=== PATIENT | male | born 1945 | race Caucasian/White ===

== ENCOUNTER 2017-05-23 13:01 | Emergency (ER) | payer OTHER, MEDICARE ==
[~2017-05-23] VITALS: Ht 167.6 cm; Wt 66.0 kg
[2017-05-23 14:04] LABS: EOSINOPHIL (%) 1.6 % (0-5); EOSINOPHIL COUNT 0.1 K/uL (0-0.3); IMMATURE GRANULOCYTE (%) 0.3 % (0.0-0.7); INSTRUMENT ABS NEUTROPHIL CT 2.1 K/uL; LYMPHOCYTE COUNT 0.7 K/uL (1.0-2.8); MCH 29.7 PG (29.0-34.0); MCHC 33.4 G/DL (30.0-36.0); MCV 88.9 FL (86-99); MEAN PLAT.VOLUME 10.6 uM^3 (9.0-12.4); MONOCYTE (%) 10.7 % (3-12); MONOCYTE COUNT 0.3 K/uL (0-0.8); NEUTROPHIL (%) 66.7 % (45-76); NEUTROPHIL COUNT 2.1 K/uL (1.8-6.4); PLATELET COUNT 166 K/uL (156-360); RBC DIS.WIDTH-CV 12.9 % (11.8-14.6); RBC DIS.WIDTH-SD 41.9 % (39-53); RED BLOOD COUNT 4.61 M/uL (4.00-5.50); WHITE BLOOD COUNT 3.2 K/uL (4.1-10.2)
[2017-05-23 14:12] LABS: CHLORIDE 105 mEq/L (99-109); POTASSIUM 3.8 mEq/L (3.7-5.4); SODIUM 143 mEq/L (136-147)
[2017-05-23 14:14] LABS: GLUCOSE 89 mg/dL (70-99)
[2017-05-23 14:15] LABS: ANION GAP 8 MEQ/L (2-14)
[2017-05-23 14:16] LABS: TOTAL BILIRUBIN 0.5 mg/dL (0.0-1.0)
[2017-05-23 14:18] LABS: ALKALINE PHOSPHATASE 59 IU/L (3-129); GFR ESTIMATE (CALCULATED) > 59 mL/min/
[2017-05-23 14:19] LABS: UREA NITROGEN (BUN) 15 mg/dL (9-23)
[2017-05-23 14:22] LABS: Estimated Average Glucose 100 mg/dL (70-123); HEMOGLOBIN A1c (GLYCOHEMOGLOB) 5.1 % HGB (Below 5.7)
[2017-05-23 14:24] LABS: TROP-I INTERPRETATION NEGATIVE; TROPONIN-I < 0.01 ng/mL (0.0-0.30)
[2017-05-23 14:36] LABS: ADD MIUA? YES; BILIRUBIN NEGATIVE; BLOOD NEGATIVE; COLOR YELLOW ((YELLOW)); GLUCOSE (STRIP) NEGATIVE; KETONES 5; LEUKOCYTES NEGATIVE; NITRITE NEGATIVE; PROTEIN (STRIP) 30; SPECIFIC GRAVITY 1.019 (1.000-1.030)
[2017-05-23 14:42] LABS: BACTERIA 1+ /HPF; EPITHELIAL CELLS NONE SEEN /HPF; MUCUS 1+ /LPF; RED BLOOD CELLS 0-5 /HPF (0-5); UCUL ADDED? NO; WHITE BLOOD CELLS NONE SEEN /HPF (0-5)
[2017-05-23 14:57] LABS: HDL CHOLESTEROL 51 MG/DL (Desirable>=40); LDL CHOLESTEROL 85 mg/dL (Desirable<100); NON-HDL CHOLESTEROL 95 mg/dL (Desirable<160); TOTAL CHOLESTEROL 146 mg/dL (Desirable<200); TRIGLYCERIDES 49 MG/DL (Normal: <150)
[2017-05-23 17:30] VITALS: BP 134/66
== END 2017-05-23 18:15 | disposition left against medical advice (07) ==
LOC: EME 13:01
PROVIDERS: Emergency Medicine
DX: R53.1 Weakness (principal); G20 Parkinson's disease; F02.80 Dementia in other diseases classified elsewhere, unspecified severity, without behavioral disturbance, psychotic disturbance, mood disturbance, and anxiety; G30.9 Alzheimer's disease, unspecified; M24.532 Contracture, left wrist; Z85.038 Personal history of other malignant neoplasm of large intestine
CPT/HCPCS: 70450; 71020; 80053; 80061; 81003; 83036; 84484; 85025; 93005; 99281; 99285

== ENCOUNTER 2017-09-14 09:24 | Inpatient (IN) | payer OTHER, MEDICARE ==
[~2017-09-14] VITALS: Ht 170.2 cm; Wt 63.7 kg
[2017-09-14 10:11] LABS: EOSINOPHIL (%) 0 % (0-5); HEMATOCRIT 48.7 % (38.0-50.0); IMMATURE GRANULOCYTE (%) 0.5 % (0.0-0.7); INSTRUMENT ABS NEUTROPHIL CT 3.2 K/uL; LYMPHOCYTE COUNT 0.3 K/uL (1.0-2.8); MCH 30.9 PG (29.0-34.0); MCHC 33.7 G/DL (30.0-36.0); MCV 91.9 FL (86-99); MEAN PLAT.VOLUME 11.7 uM^3 (9.0-12.4); MONOCYTE (%) 13.7 % (3-12); MONOCYTE COUNT 0.6 K/uL (0-0.8); NEUTROPHIL COUNT 3.2 K/uL (1.8-6.4); PLATELET COUNT 147 K/uL (156-360); RBC DIS.WIDTH-SD 43.4 % (39-53); WHITE BLOOD COUNT 4.1 K/uL (4.1-10.2)
[2017-09-14 10:18] LABS: INTER. NORMALIZED RATIO 1.3; PROTHROMBIN TIME 14.5 SEC (10.2-12.9)
[2017-09-14 10:31] LABS: TROP-I INTERPRETATION NEGATIVE; TROPONIN-I 0.02 ng/mL (0.0-0.30)
[2017-09-14 10:54] LABS: ADD MIUA? YES; BILIRUBIN NEGATIVE; BLOOD MODERATE; COLOR AMBER ((YELLOW)); GLUCOSE (STRIP) NEGATIVE; KETONES 5; LEUKOCYTES LARGE; NITRITE POSITIVE; PROTEIN (STRIP) 100; SPECIFIC GRAVITY 1.029 (1.000-1.030)
[2017-09-14 11:10] LABS: BACTERIA 2+ /HPF; EPITHELIAL CELLS NONE SEEN /HPF; MUCUS TRACE /LPF; RED BLOOD CELLS TNTC /HPF (0-5); UCUL ADDED? YES; WHITE BLOOD CELLS TNTC /HPF (0-5); WHITE BLOOD CELLS CLUMP FEW /HPF (0-5)
[2017-09-14 12:01] LABS: CHLORIDE 117 mEq/L (99-109); POTASSIUM 3.5 mEq/L (3.7-5.4); SODIUM 157 mEq/L (136-147)
[2017-09-14 12:02] LABS: GLUCOSE 138 mg/dL (70-99)
[2017-09-14 12:04] LABS: ANION GAP 15 MEQ/L (2-14)
[2017-09-14 12:06] LABS: GFR ESTIMATE (CALCULATED) > 59 mL/min/
[2017-09-14 12:07] LABS: UREA NITROGEN (BUN) 35 mg/dL (9-23)
[2017-09-14] MEDS ORDERED: VITAMIN D31000 UNI2 PO (12:44)
[2017-09-14] MEDS ORDERED: SINEMET 25-1001 EACH PO (12:44)
[2017-09-14] MEDS ORDERED: CYANOCOBALAM1000 MCG PO (12:44)
[2017-09-14] MEDS ORDERED: ACETAMINOPHEN650 M5 PO ×2 (12:45→12:48)
[2017-09-14] MEDS ORDERED: CENTRUM SILVER1 EAC5 PO (12:45)
[2017-09-14] MEDS ORDERED: COLACE100 MG PO (12:46)
[2017-09-14] MEDS ORDERED: MEMANTINE HCL10 MG PO (12:47)
[2017-09-14] MEDS ORDERED: MELATONIN5 M1 PO (12:49)
[2017-09-14] MEDS ORDERED: TRAZODONE HCL50 MG PO (12:49)
[2017-09-14 13:00] VITALS: BP 149/79
[2017-09-14 16:29] VITALS: BP 142/71
[2017-09-14 20:11] VITALS: BP 96/59
[2017-09-14 23:25] VITALS: BP 100/62
== END 2017-09-15 05:08 | DRG 689 ==
LOC: EME 09:24 → EDOF 11:21 → ENRESERV 11:34 → 5SOUTH 12:52
PROVIDERS: Emergency Medicine; Internal Medicine
DX: N39.0 Urinary tract infection, site not specified (principal); G93.40 Encephalopathy, unspecified; I48.91 Unspecified atrial fibrillation; G30.9 Alzheimer's disease, unspecified; G20 Parkinson's disease; Z66 Do not resuscitate; G47.00 Insomnia, unspecified; F02.80 Dementia in other diseases classified elsewhere, unspecified severity, without behavioral disturbance, psychotic disturbance, mood disturbance, and anxiety; Z85.038 Personal history of other malignant neoplasm of large intestine
CPT/HCPCS: 70450; 71010; 80048; 81003; 83605; 84484; 85025; 85610; 85730; 87040; 87077; 87086; 87186; 93005; 99281; 99285; J0696; J1650; J2270; J7030; J7042